=== PATIENT | male | born 1965 | race Caucasian/White ===

== ENCOUNTER 2017-12-26 19:32 | Inpatient (IN) | END 2017-12-29 15:20 | disposition home or self-care (01) | DRG 433 ==

== ENCOUNTER 2018-05-08 16:48 | Emergency (ER) | END 2018-05-08 20:11 | disposition home or self-care (01) ==

== ENCOUNTER 2019-04-22 09:32 | Emergency (ER) | payer MEDICAID ==
[~2019-04-22] VITALS: Ht 154.9 cm; Wt 80.0 kg
[~2019-04-22 09:32] MED LIST: CHLO25CA9 PO; CIPR500T4 PO; DOCU-216 PO; IBUP-1542 PO; METH4TAB PO; PANT40TA4 PO; THIA100T56 PO
[2019-04-22 09:43] VITALS: Ht 154.9 cm; Wt 80.0 kg
[2019-04-22] MEDS ORDERED: KETOROLAC 30 MG INJ IV STA (10:37)
[2019-04-22] MEDS ORDERED: SOD CHLORIDE 0.9% 1,000 ML IV STA (10:37)
[2019-04-22 14:26] VITALS: BP 131/74; PULSE 65; RESP 17
== END 2019-04-22 14:25 | disposition home or self-care (01) ==
LOC: FTE 09:32
DX: K80.20 Calculus of gallbladder without cholecystitis without obstruction (principal)
CPT/HCPCS: 36415; 76705; 80053; 81001; 83690; 84443; 85025; 93005; 96361; 96374; J1885; J7030; Z7502